=== PATIENT | female | born 2005 | race Caucasian/White ===

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

== ENCOUNTER 2025-01-15 11:52 | Outpatient (CLI) | payer BC, SELFPAY ==
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
--- NOTE | 2025-01-21 14:25 | PC.SOCIAL ---
Addendum entered and electronically signed by Hope Nugent LCSW 01/21/25 15:26: SW received callback from Dorian who states that she is doing well, just sore. YUMIKO explained that she needs a few pieces of information to complete WIC application - best time of day for WIC to contact her, if she is interested in support, and income. Dorian states she doesn't have income information and requested that YUMIKO email her the questions so she can review them and get the information. YUMIKO confirmed email address listed in the chart. Dorian inquired about when is the best time to apply for WIC, prentally or . YUMIKO explained that it's up to the patient. Patient had no further questions. Original Note: Social Work Consult: YUMIKO attempted to complete WIC application for patient, however, a few pieces of information were missing. YUMIKO called patient and left a voicemail requesting a call back.
== END 2025-01-15 11:53 | disposition home or self-care (01) ==
LOC: AMB 01-16 11:16
PROVIDERS: Visit Provider Student in an Organized Health Care Education/Training Program
DX: T14.90XA Injury, unspecified, initial encounter (principal); O36.5130 Maternal care for known or suspected placental insufficiency, third trimester, not applicable or unspecified; Z3A.28 28 weeks gestation of pregnancy; V47.0XXA Car driver injured in collision with fixed or stationary object in nontraffic accident, initial encounter; Y92.410 Unspecified street and highway as the place of occurrence of the external cause
CPT/HCPCS: A0425; A0427

== ENCOUNTER 2025-01-15 12:31 | Outpatient (CLI) | payer BC, SELFPAY ==
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
[2025-01-15 12:44] VITALS: BP 125/90; PULSE 90; RESP 20; TEMP 36.8; O2SAT 100; BMI 27.8
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
--- NOTE | 2025-01-15 13:08 | PC.NURSE ---
FHR checked by doppler. FHR 140 with doppler. Audible increases heard and fetus moving during auscultation.
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
[2025-01-15 14:03] VITALS: PULSE 84; O2SAT 100
[2025-01-15 14:06] VITALS: BP 120/69; PULSE 83; RESP 12; TEMP 37.1
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
== END 2025-01-15 19:15 | disposition home or self-care (01) ==
LOC: ED 13:29 → OB OUT 13:35 → OB 13:36
PROVIDERS: Emergency Provider Emergency Medicine; Visit Provider Advanced Practice Midwife
DX: O36.8130 Decreased fetal movements, third trimester, not applicable or unspecified (principal)
CPT/HCPCS: 59025; 73130; 76604; 76705; 93308; 99284; 99285; G0463

== ENCOUNTER 2025-01-24 09:08 | Outpatient (CLI) | payer BC, SELFPAY ==
--- NOTE | 2025-02-21 13:38 | PC.SOCIAL ---
Derivatives Trader Consult: SW received email from patient with the information SW needed to apply patient for WIC. SW completed the WIC referral for patient and informed patient this was completed and that next steps will be WIC reaching out patient. SW to continue to support patient as needed.
== END 2025-01-24 09:09 | disposition home or self-care (01) ==
LOC: NFLDREF 01-27 08:00
PROVIDERS: Visit Provider Advanced Practice Midwife
DX: Z34.83 Encounter for supervision of other normal pregnancy, third trimester (principal)
CPT/HCPCS: 86592

== ENCOUNTER 2025-01-24 09:13 | Outpatient (CLI) | payer BC, SELFPAY ==
--- NOTE | 2025-01-24 09:15 | CRLHL7_ITS ---
For Patients: As a result of the Century Cures Act, medical imaging exams and procedure reports are released immediately into your electronic medical record. You may view this report before your referring provider. If you have questions, please contact your health care provider. OBSTETRICAL ULTRASOUND ??? BIOPHYSICAL PROFILE, 01/24/2025 INDICATION: Marginal cord insertion. CLINICAL HISTORY: LMP: 07/02/2024 ALEJO by LMP: 04/08/2025 Gestational Age: 29 weeks 3 days COMPARISON: 12/21/2024. TECHNIQUE: Real-time velasco-scale imaging of the fetus was performed transabdominal. FINDINGS: Fetus: Single Cervix: Not visualized positioning: Vertex Amniotic Fluid: 7.4 cm SDP Placenta technique: Transabdominal Placenta position: Posterior heart rate: 137 bpm BIOMETRY: BPD: 7.9 cm, 31 weeks 6 days, 96% HC: 28.0 cm, 30 weeks 5 days, 54% AC: 25.1 cm, 29 weeks 2 days, 40% FL: 5.6 cm, 29 weeks 3 days, 36% FL/AC Ratio: 22.33% HC/AC ratio: 1.12 EFW: 1433 grams; 3 lbs. 3 oz. age by this ultrasound: 30 weeks 2 days ALEJO by this ultrasound: 04/02/2025 Percentile by ALEJO: 45% IMPRESSION: 1. Single living intrauterine measuring 30 weeks 2 days and sonographic due date 04/02/2025. Sonographic age is 6 days ahead of the clinical age. 2. Estimated weight is 45th percentile. Abdominal circumference is 40th percentile. 3. Placental cord insertion is located 2.4 cm from the placental edge. HUNTER FINLEY M.D. Diagnostic Radiologist [email or web address] Transcribed: 11:[address]/Dictated by: Hunter Finley MD @ 01/24/2025 11:14:00 AM (Electronically Signed)
== END 2025-01-24 09:14 | disposition home or self-care (01) ==
LOC: US 09:13
PROVIDERS: Visit Provider Advanced Practice Midwife
DX: O43.193 Other malformation of placenta, third trimester (principal); O36.63X0 Maternal care for excessive fetal growth, third trimester, not applicable or unspecified; Z3A.29 29 weeks gestation of pregnancy
CPT/HCPCS: 76816

== ENCOUNTER 2025-02-21 15:24 | Outpatient (CLI) | payer BC, SELFPAY | END 2025-02-21 15:25 | disposition home or self-care (01) | LOC: NFLDREF 02-27 18:29 | PROVIDERS: Visit Provider Advanced Practice Midwife | DX: Z34.83 Encounter for supervision of other normal pregnancy, third trimester (principal) | CPT/HCPCS: 82728 ==

== ENCOUNTER 2025-03-07 14:32 | Outpatient (CLI) | payer BC, SELFPAY ==
[2025-03-07] VITALS (19 sets, daily range): BP systolic 107–132; BP diastolic 61–80; PULSE 60–93; O2SAT 100
[2025-03-07 16:29] LABS: Clue Cells >20% Clue Cells Seen (None Seen); Trichomonas No Trichomonas Seen (None Seen); Yeast No Yeast Seen (None Seen)
[2025-03-07 16:31] LABS: Hematocrit 31.1 % (33.0-51.0); Hemoglobin* 10.3 gm/dL (12.0-16.0); Mean Corpuscular HGB Conc 33 gm/dL (32-36); Mean Corpuscular Hemoglobin 29 pg (26-34); Mean Corpuscular Volume 88 fL (80-100); Platelet Count* 135 K/uL (140-440); Red Blood Count 3.53 m/uL (4.00-5.20); White Blood Count* 6.71 K/uL (4.50-11.00)
[2025-03-07 16:35] LABS: Slide Review Reflex No
[2025-03-07 16:47] LABS: Blood Urea Nitrogen* 9 mg/dL (5-24); Creatinine* 0.5 mg/dL (0.6-1.2); Estimated Glomerular Filt Rate 138 ml/min
[2025-03-07 16:48] LABS: Alanine Aminotransferase* 16 U/L (4-35); Aspartate Amino Transferase* 28 U/L (12-35)
[2025-03-07 18:07] LABS: Appearance Urine Clear (Clear); Bilirubin Urine Negative (Negative); Blood Urine Negative (Negative); Color Urine Light yellow (Yellow); Glucose Urine Negative (Negative); Ketones Urine 1+ (Negative); Leukocyte Esterase Urine Negative (Negative); Nitrite Urine Negative (Negative); Protein Urine Negative (Negative); Urobilinogen Urine 0.2 (0.2-1.0); pH Urine 6.5 (5.0-8.5)
[2025-03-07 18:20] LABS: Total Protein Urine 14 mg/dL
[2025-03-07 18:21] LABS: Creatinine Urine 31.6 mg/dL; Protein Creatinine Ratio Urine 0.44 (0-0.19)
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
--- NOTE | 2025-03-07 19:56 | PC.OBNST ---
NST Note NST Note Start: 03/07/25 14:45 Freq: ONCE Status: Active Protocol: Document 03/07/25 19:55 BAW (Rec: 03/07/25 19:56 BAW No Response) NST Note 2 Para (# of births) 0 EDC 04/08/25 Gestational Age In 35 Weeks & 3 Days Weeks & Days Patient Presented Other with Complaint(s) of Other Complaints R/O preE Reactive Yes Appropriate for Yes Gestational Age KRYSTA Case RNC Date 03/07/25 Reactive Yes Appropriate for Yes Gestational Age KRYSTA lKein RN Date 03/07/25 OB NST charge Yes Complete NST Note Yes via Write Note The provider's electronic signature indicates the NST is reactive/appropriate for gestational age. *Note to provider: If an addendum is required, open the patient's chart and click on the note under the Nurse/Allied Health tab.
[2025-03-08 05:48] LABS: Total Protein Urine 14 mg/dL
[2025-03-08 05:49] LABS: Creatinine Urine 32.4 mg/dL; Protein Creatinine Ratio Urine 0.43 (0-0.19)
[2025-03-08 06:10] LABS: Collection Time Urine 24 Hours; Total Volume 24 Hour Urine 3000 ml; Urine Creatinine mg/24 Hour 972 mg/Day
== END 2025-03-07 19:40 | disposition home or self-care (01) ==
LOC: OB OUT 14:32 → OB 14:33 → OB OUT 14:35 → OB 16:12
PROVIDERS: Visit Provider Advanced Practice Midwife
DX: O26.893 Other specified pregnancy related conditions, third trimester (principal); R07.81 Pleurodynia; R51.9 Headache, unspecified; Z3A.35 35 weeks gestation of pregnancy
CPT/HCPCS: 36415; 59025; 81003; 82565; 82570; 84156; 84450; 84460; 84520; 85027; 87210; G0463

== ENCOUNTER 2025-03-08 14:28 | Outpatient (CLI) | payer BC, SELFPAY ==
[2025-03-09 14:01] LABS: Strep B DNA Probe Negative (Negative)
[2025-03-09 14:35] LABS: Strep B Susceptibility Needed? No
[2025-03-10 05:19] LABS: Collection Time Urine 24 Hours; Total Volume 24 Hour Urine 3025 ml
[2025-03-10 05:21] LABS: Total Protein 24 Hour Urine 544.5 mg/Day; Total Protein Urine 18 mg/dL
[2025-03-10 05:51] LABS: Protein Creatinine Ratio Urine 0.26 (0-0.19); Urine Creatinine mg/24 Hour 2087 mg/Day
== END 2025-03-08 14:29 | disposition home or self-care (01) ==
LOC: NFLDREF 14:28
PROVIDERS: Advanced Practice Midwife; Visit Provider Advanced Practice Midwife
DX: O12.13 Gestational proteinuria, third trimester (principal); Z3A.35 35 weeks gestation of pregnancy
CPT/HCPCS: 82570; 84156; 87081; 87653

== ENCOUNTER 2025-04-03 12:04 | Inpatient (IN) | payer BC, SELFPAY ==
[2025-04-03] VITALS (36 sets, daily range): BP systolic 90–116; BP diastolic 52–88; PULSE 76–202; RESP 16–18; TEMP 36.4–37.3; O2SAT 81–100; BMI 33.0
--- NOTE | 2025-04-03 11:19 | CRLHL7_ITS ---
For Patients: As a result of the Century Cures Act, medical imaging exams and procedure reports are released immediately into your electronic medical record. You may view this report before your referring provider. If you have questions, please contact your health care provider. OB ULTRASOUND ALEJO by US: 04/10/2025. GA: 39 w, 0 d. Single. INDICATION: Active bleeding. TECHNIQUE: Real time grayscale imaging of the fetus was performed. Transabdominal. CERVIX: Not visualized. POSITIONING: Vertex. AMNIOTIC FLUID: 4.7 cm. SDP (N: greater than 2 x 1 cm) PLACENTA: Technique: Transabdominal. PLACENTA POSITION: Posterior. DOPPLER: heart rate: 123 bpm. IMPRESSION: There is a somewhat large-appearing ill-defined area of heterogeneously hyperechoic material within the anterior aspect of the gravid uterus measuring up to approximately 10.7 cm, anterior to the placental edge. No color Doppler flow within this area on the static images. Amniotic fluid volume is normal. heart rate 123 beats per minute. Findings are consistent with active bleeding in the setting of pain/vaginal bleeding. Results called immediately to Yelena Medeiros at 12:02 p.m. 04/03/2025 and emergent delivery advised. Hunter Winslow M.D. Diagnostic Radiologist [email or web address] URI/alanna [email or web address]/Dictated by: Hunter Winslow MD @ 04/03/2025 12:07:00 PM (Electronically Signed)
[2025-04-03] MEDS: LACTATED RINGERS 1000 ML 1,000 ML IV (11:30)
--- NOTE | 2025-04-03 11:34 | PM.OBLDTN ---
OB - Triage/Final Diagnosis Visit Information Narrative: The patient is a [] year old [] para [] at [] weeks gestation by [], who presents with []. [] Comments/Additional reasons for admission: CBC, type and screen, US orded, Ali notified, mod bright red, thighs covered in blood, woke from nap in pool of blood, no leaking fluid +FM, no ctx, SVE /-2 Evaluation Cervical dilation (cm): 1 Cervical effacement (%): 70 Vital signs: Vital Signs - 24 hr 04/03/25 11:24 04/03/25 11:25 04/03/25 11:30 Pulse Rate 102 H Blood Pressure 116/88 Pulse Oximetry 81 L 98 99 Fetus (Single) Station: -2
[2025-04-03 11:38] LABS: Hematocrit 36.1 % (33.0-51.0); Hemoglobin* 12.0 gm/dL (12.0-16.0); Immature Granulocytes Abs Auto 0.05 K/uL (0.00-0.30); Immature Granulocytes Pct Auto 0.6 %; Mean Corpuscular HGB Conc 33 gm/dL (32-36); Mean Corpuscular Hemoglobin 29 pg (26-34); Mean Corpuscular Volume 88 fL (80-100); RDW Coefficient of Variation % 13.1 % (11.5-15.5); Red Blood Count 4.12 m/uL (4.00-5.20); White Blood Count* 8.97 K/uL (4.50-11.00)
[2025-04-03 11:44] LABS: Lymphocytes Absolute Auto 1.70 K/uL (0.90-2.90)
[2025-04-03 11:45] LABS: Slide Review Reflex No
[2025-04-03 12:22] LABS: INR 0.88 (0.91-1.10); Prothrombin Time 12.7 Seconds
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
[2025-04-03] MEDS: CEFAZOLIN 2 GM INJ IVP (13:00)
[2025-04-03] MEDS: TRANEXAMIC ACID 100 MG/ML INJ 1000 MG IV (13:13)
--- NOTE | 2025-04-03 13:26 | W.PM.LDBA ---
Subjective History of Present Illness Time Seen by Provider: 11:30 Date Seen: 04/03/25 Narrative: Patient is being admitted to Labor and Delivery for vaginal bleeding. She is a 19 year old at 39.2 weeks gestation. Her full history and physical was dictated by Ze Medeiros CNM on 03/14/25. Please see this for details. Dorian states that she woke from a nap and had a pool of blood under her coming from her vaginal and was bright red in color. She denies regular contractions but does state that she has had intermittent contractions/cramping over the last few days. She denies leaking fluid and has appreciated good movement. On vaginal exam she was found to be 1cm/70%/-2 with a moderate amount of bright red blood with the exam. She does endorse some tenderness to her abdomen with palpation. Feeling contractions as cramping only and mild. Labs collected and US ordered. US showed likely abruption with blood produces noted anterior to the placenta per verbal report from the radiologist. Dr. Garcia notified of findings and consulted for likely delivery. FHR has remained reactive with moderate variability, + accels, and -decels. She is accompanied by her dad and her mom is on her way for support. The FOB is also coming but it is unclear if her will arrive prior to delivery. Specific Issues/Plans FOB: Pete (uncertain of his involvement, will now likely be involved but they are not currently together) It is a girl! (maybe Iris?;) H&P 03/14/25 by Ze Medeiros CNM # Proteinuria without dx of HTN P/C ratio 0.44 at 35.3wks with RUQ pain and HAs. BPs all normal. 24hr urine ordered. Kit sent home with pt on 03/07. Repeat ordered 03/14. BP cuff sent home for home monitoring. Consider 24 urine PP if not PreE develops # Low Platelets- 135 on 03/07 # Limited PNC. No care from 10-24 weeks. SS consult ordered. [facility] referral placed PH referral sent # Teen # Autism # Hx anxiety/depression. Feels stable at NOB but has a lot of stressors (parents don't know, fear of judgement, dad has brain CA). counseling referral sent 12/21-decided to wait until PP, family now aware and feels supported # Penicillin allergy. Briefly discussed allergy testing. She is going to clarify the allergy with her mom. # Varicella non-immune. # Marginal cord insertion (<1 cm from placental edge) Resolved Placental cord insertion is located 2.4 cm from the placental edge. ? Growth US at 28- completed and 34 weeks?NA as now resolved ? Delivery recommended: Early term delivery not indicated? # Anemia Taking oral iron COVID: Flu: TDAP: 01/24/2025 OB - Problem Based A/P Additional Plan (1) Vaginal bleeding in : Status: Acute (2) Gestational proteinuria without hypertension, antepartum: Status: Acute (3) Anemia affecting : Status: Acute (4) Autism: Problem details: high functioning, executive dysfunction Status: Acute (5) Depression: Status: Acute (6) Anxiety: Status: Acute Plan ASSESSMENT:? 19 at 39.2 weeks gestation? complicated by:?Proteinuria without dx of HTN, limited PNC from 10-24 weeks, teen , autism, anxiety and depression, varicella nonimmune, and anemia Labor type: not in labor? Category 1 FHR pattern.?? Labor complicated by: moderate vaginal bleeding, indication of placenta abruption ? GBS negative? PLAN:? 1. OB consultation for suspected abruption. Anticipate proceeding to delivery. 2. Monitoring, continuous? 3. Anticipate unscheduled section, care assumed by Dr. Garcia. Delivery/Labor/Induction Plan Plan: Section OB Result Labs Blood Type: A (+) positive Rubella: immune RPR/VDLR: nonreactive GBS Status: negative HBsAG: negative OB Exam Physical Exam Vital signs: Temp Pulse Resp BP Pulse Ox 98.3 F 102 H 18 116/88 100 04/03/25 11:42 04/03/25 11:30 04/03/25 11:42 04/03/25 11:30 04/03/25 12:35 Narrative: General: alert, oriented x3, no acute distress??? Mood: appropriate, some anxiety?? Lungs:? CTA.? Respirations - breathing unlabored??? Heart: Regular rate and rhythm?? Abdomen: soft, gravid uterus, tender to palpation ?? Legs: nontender, trace?edema Skin: warm, dry, no rashes??? Neurologic:? Intact.??? Detailed Labor and Delivery Exam Patient Gravid: yes Dilation (cm): 1 Effacement (%): 70 Cervix position: posterior Consistency: firm Contraction Frequency: 2-3 Tachysystole: No Contraction intensity: Mild Fetus (Single) Station: -2 Amniotic Membrane Status: intact Heart Rate Baseline: 120 Monitor Accelerations: Present Monitor Decelerations: None Long-Term Variability: Moderate (6-25) (initially minimal but increased to moderate )
--- NOTE | 2025-04-03 13:51 | P.OBPRC_ITS ---
Procedure Date of procedure: 04/03/25 Pre-op diagnosis: Suspected placental abruption, vaginal bleeding, adolescent , low ferritin, autism, anxiety, depression, proteinuria Post-op diagnosis: same Procedure Done: Global Will [facility] bill your pro fee for this procedure?: Yes Blood Loss Measurement Type: QBL (5906) Bakri Used: No IV fluids (mL): 1,200 Urine Output (mL): 400 Urine Output Comment: Clear, yellow Surgeon: Meghan Garcia MD Anesthesia Type: Spinal Findings: Liveborn female fetus Meconium stained and bloody amniotic fluid Placental abruption Unremarkable uterus, bilateral fallopian tubes and ovaries Procedure Name: Primary delivery Procedure Description: Patient was taken to the operating room with IV running. She received cefazolin in preoperative prophylaxis after successful test dose. Spinal anesthesia was administered. Serrato catheter was inserted. She was prepped and draped in the usual sterile fashion. Anesthesia was tested and found to be adequate. A low-transverse skin incision was made with a scalpel and carried through to the underlying layer of fascia with the scalpel. The subcutaneous fat was dissected off the underlying fascia with Bovie and blunt dissection. The fascia was nicked in the midline with a scalpel, and this incision was extended laterally with scissors. The rectus muscles were in the midline. Peritoneum was identified and entered bluntly. Bovie was used to widen this opening laterally. Sanjay O retractor was inserted and tightened down, providing excellent visualization of the lower uterine segment. The bladder reflection was found to be advanced along the lower uterine segment. A bladder flap was created with a combination of sharp and blunt dissection. Low-transverse uterine incision was made with a scalpel. Incision was widened bluntly. Meconium and blood stained amniotic fluid was noted. The 's head was grasped through the hysterotomy and elevated to the hysterotomy. The remainder of the body delivered without incident with the help of fundal pressure. No nuchal cord was noted. was noted to make spontaneous respiratory efforts with initially appropriate tone. Cord was clamped and cut after 30 seconds. Infant was handed off to attending nurses and DIRECTOR AMBULATORY. A large blood clot was noted to be presenting at the hysterotomy, organized and maroon in color thought to represent placental abruption. The placenta delivered essentially spontaneously with very little traction applied. Clinical suspicion for placental abruption was thus confirmed. IV Pitocin and IV TXA was requested and administered. The uterus was cleaned of all clots and debris with the dry lap pad x2. The hysterotomy was reapproximated with 0 Vicryl in a running, locked fashion. Second layer of the same suture was used in imbricating fashion to obtain hemostasis. Excellent uterine tone was noted. The adnexa were examined and noted to be normal in appearance. The cul-de-sac and gutters were cleansed with dampened laparotomy sponge, removing any further clots and debris. Hysterotomy was re-examined and noted be his hemostatic. Bladder flap was sequentially elevated and examined, made hemostatic with electrocautery as needed. The Sanjay O retractor was removed. The hysterotomy was reexamined and found to be hemostatic. Baldo was applied across the hysterotomy and bladder flap. The rectus muscles were grasped, elevated and examined. No fascial defects noted, muscles were made hemostatic with e lectrocautery. The fascia was reapproximated with 0 Vicryl in a running fashion. Subcutaneous fat was irrigated and Bovie used on oozing vessels. The subcutaneous fat did not require closure. The skin was closed with a subcuticular stitch of 3-0 monocryl. Surgical glue was applied above this. Surgical dressing applied. Patient tolerated procedure well was taken to recovery area in stable condition. Surgical debrief was completed. details: - Liveborn female fetus - weight: 7lb 11oz - APGARs were 7 and 9 at 1 and 5 minutes respectively - Cord gas obtained in the setting of placental abruption, found to be within normal limits with pH of 7.29, pCO2 of 56, HC03 of 26 and base excess of -1.3. Complications: hemorrhage secondary to placental abruption and uterine atony Pathology: specimen obtained, sent to pathology Surgery Debrief Performed: Yes Condition: stable Disposition: floor
--- NOTE | 2025-04-03 14:27 | P.ANES_ITS ---
Anesthesia Charges Start Date/Time Anesthesia Start Date: 04/03/25 Anesthesia Start Time: 12:42 Stop Date/Time Anesthesia Stop Date: 04/03/25 Anesthesia Stop Time: 14:07 Summary Emergency: BOARDER STEAM Coding CPT Codes CPT Codes: ANESTH CS DELIVERY - 28877 ([id number]) P2 - PATIENT W/MILD SYST DISEASE, QZ - BOARDER STEAM SVC W/O DATABASE ADMIN BY Additional Codes: Summary - Emergency: BOARDER STEAM ([id number])
--- NOTE | 2025-04-03 14:27 | W.ANESCHARGE ---
Anesthesia Charges Start Date/Time Anesthesia Start Date: 04/03/25 Anesthesia Start Time: 12:42 Stop Date/Time Anesthesia Stop Date: 04/03/25 Anesthesia Stop Time: 14:07 Summary Emergency: TRAIN CLERK Coding CPT Codes CPT Codes: ANESTH CS DELIVERY - 82746 ([id number]) P2 - PATIENT W/MILD SYST DISEASE, QZ - TRAIN CLERK SVC W/O PATTERN ASSEMBLER BY Additional Codes: Summary - Emergency: TRAIN CLERK ([id number])
[2025-04-03 14:28] LABS: Hemoglobin* 8.9 gm/dL (12.0-16.0)
--- NOTE | 2025-04-03 14:28 | P.NB_ITS ---
Nerve Block Nerve Block Time Seen by Provider: 13:55 Date Seen: 04/03/25 Type of block requested by surgeon for post-operative analgesia: TAP Side: bilateral Time out performed: Yes Verification of patient name: Yes Verification of date of : Yes Name of person performing procedure: Brad Kimberly Continuous monitoring Was continuous monitoring of O2 sat, B/P, vehicle monitor technician, recorded every 15 minutes?: Yes Procedure Checklist: sterile prep, needles and gloves Ultrasound guided. Images saved: Yes Medications given in 5ml increments after negative aspiration: Marcaine %: 0.25 mL: 30 Needle gauge: 20 and Exparel mL: 10 Needle gauge: 20 Patient tolerated procedure well: Yes Block Charges Block Charge (with Pro Fee): TAP Bilateral Use of Ultrasound Machine for Block: Yes- US Guidance/pain block
[2025-04-03 15:01] LABS: Hematocrit 26.9 % (33.0-51.0); Hemoglobin* 8.8 gm/dL (12.0-16.0); Immature Granulocytes Abs Auto 0.20 K/uL (0.00-0.30); Immature Granulocytes Pct Auto 1.2 %; Mean Corpuscular HGB Conc 33 gm/dL (32-36); Mean Corpuscular Hemoglobin 29 pg (26-34); Mean Corpuscular Volume 89 fL (80-100); RDW Coefficient of Variation % 13.1 % (11.5-15.5); Red Blood Count 3.02 m/uL (4.00-5.20); White Blood Count* 16.14 K/uL (4.50-11.00)
[2025-04-03 15:04] LABS: Lymphocytes Absolute Auto 1.20 K/uL (0.90-2.90)
[2025-04-03 15:05] LABS: Slide Review Reflex No
[2025-04-03 15:18] LABS: INR 0.94 (0.91-1.10); Prothrombin Time 13.3 Seconds
[2025-04-03] MEDS: ACETAMINOPHEN 500 MG TABLET 1000 MG PO ×2 (16:29→22:31)
--- NOTE | 2025-04-03 16:52 | PM.OBPNVD1 ---
OB - PN:Subj Subjective Time Seen by Provider: 15:20 Date Seen: 04/03/25 Narrative: Dorian is a 19 year old G 2 P 1 seen on POD0 shortly after primary C/S for placental abruption, complicated by PPH of 1455mL. was otherwise complicated by adolescent , anemia, gestational proteinuria without hypertension, autism spectrum disorder, depression and anxiety. A postprocedure hemoglobin was obtained in the setting of hemorrhage, found to be significantly lower than her preop baseline at 8.9. I requested stat repeat coags and a complete CBC to be redrawn, where the CBC was rather added to her previous lab draw. There is some evidence of hemodilution which is not unexpected in the postoperative period related IV fluids, where Hgb went from 12 to 8.8 and platelets of 139 to 111. Coags remained technically within normal limits, though her fibrinogen was noted to downtrend significantly from 534 to 385. INR of 0.94 and aPTT of 24. I presented the bedside, where patient notes she is feeling okay. She does note abdominal pain, primarily across the distribution of her incision. She does note tenderness to palpation in the upper abdomen but no discrete pain there. Denies chest pain or dyspnea. She does endorse mild lightheadedness, no dizziness, nausea/vomiting or presyncope. Lochia has been minimal. NSAIDs have been held, she has received Tylenol and a single dose of oxycodone since delivery. OB - PN: Obj Exam Physical Exam: Vital signs: Temp Pulse Resp BP Pulse Ox 98.1 F 78 18 91/59 L 99 04/03/25 14:10 04/03/25 14:35 04/03/25 14:35 04/03/25 14:35 04/03/25 14:35 Narrative: Vital signs reviewed. Patient is noted to be mildly hypotensive, no tachycardia. O2 sat of 99%. General: Patient is alert an oriented, in no acute distress. Mildly pale in appearance. Psych: Appropriate mood and affect Heart: Regular rate and rhythm, no rubs murmurs or gallops Lungs: Clear to posterior auscultation without wheezes rales or crackles Abdomen: Soft, nondistended. She is tender to palpation throughout, greatest in the lower quadrants. No rebound or guarding. Fundus palpates firm at 1 below umbilicus. Incision is covered by surgical dressing, appears clean and dry. Pelvic: Scant bleeding noted on pad, no expression of bleeding/clots on fundal massage. Humphrey catheter in place. 70cc of UOP in the 90 minutes since leaving the OR. Extremities: No significant edema, no calf erythema or tenderness. Urinary Catheter Management: Straight: Cath placed during this visit: no OB - PN: Obj Data Labs Labs: Laboratory Results - last 24 hr 04/03/25 04/03/25 04/03/25 11:22 12:09 14:22 WBC 8.97 16.14 H RBC 4.12 3.02 L Hgb 12.0 8.9 L Hct 36.1 MCV 88 MCH 29 MCHC 33 RDW Coeff of Latoya 13.1 Plt Count 139 L Neut % (Auto) 71.0 Lymph % (Auto) 19.3 L [place] % (Auto) 7.9 Eos % (Auto) 1.0 Baso % (Auto) 0.2 Neut # (Auto) 6.37 Lymph # (Auto) 1.70 [place] # (Auto) 0.70 Eos # (Auto) 0.09 Baso # (Auto) 0.02 Abs Immat Gran (auto) 0.05 Imm/Tot Granulo (auto) 0.6 INR 0.88 L APTT 24 Fibrinogen 534 H Lab Acknowledgement Test Added Blood Type A Positive Antibody Screen NEGATIVE 04/03/25 04/03/25 14:22 14:54 WBC RBC Hgb 8.8 L Hct 26.9 L MCV 89 MCH 29 MCHC 33 RDW Coeff of Latoya 13.1 Plt Count 111 L Neut % (Auto) 86.0 H Lymph % (Auto) 7.4 L [place] % (Auto) 5.1 Eos % (Auto) 0.2 Baso % (Auto) 0.1 Neut # (Auto) 13.90 H Lymph # (Auto) 1.20 [place] # (Auto) 0.80 Eos # (Auto) 0.00 Baso # (Auto) 0.00 Abs Immat Gran (auto) 0.20 Imm/Tot Granulo (auto) 1.2 INR 0.94 APTT 24 Fibrinogen 385 Lab Acknowledgement Blood Type Antibody Screen OB - PN: A/P Delivery Assessment and Plan (1) Placental abruption: Status: Acute (2) Vaginal bleeding in : Status: Acute (3) Gestational proteinuria without hypertension, antepartum: Status: Acute (4) Intrauterine in teenager: Status: Acute (5) Autism: Problem details: high functioning, executive dysfunction Status: Acute (6) Depression: Status: Acute (7) Anxiety: Status: Acute Plan Dorian is a 19yo seen on POD0 shortly after primary C/S for placental abruption, complicated by PPH of 1455mL. was otherwise complicated by adolescent , anemia, gestational proteinuria without hypertension, autism spectrum disorder, depression and anxiety. Immediate postoperative course has been notable for mild hypotension, without tachycardia. Patient does endorse postoperative pain, need with Tylenol and oxycodone. NSAIDs have been held, in the setting of postoperative hemoglobin of 8.9 from 12.0 preoperatively. Repeat stat CBC and coags were requested, where CBC was rather added on to the prior draw. Hgb of 8.8, platelets of 111, fibrinogen of 385 from 534, INR of 0.94 from 0.88 and APTT stable at 24. I presented the bedside, where patient is overall well-appearing. She does have slight lightheadedness and abdominal pain, receiving Tylenol and oxycodone (5mg x1) for pain control. NSAIDs have been held at this time. Her abdominal exam is overall very reassuring - soft, nondistended. She does have tenderness to palpation throughout, greatest in the lower quadrants but no rebound or guarding. Fundus palpates firm at 1 below umbilicus. Scant lochia noted on pad. UOP has been adequate (70cc in 90 minutes) with humphrey in place. Overall, I suspect her anemia is secondary to placental abruption, acute blood loss from surgery and likely some hemodilution. Pre-op Hgb was 12, whereas clinic labs have been 9.8 - 10.3 from 01/24 until 10.3 so I do suspect our initial draw may have been somewhat hemoconcentrated. Regardless, she has an overall reassuring abdominal exam, adequate UOP, no tachycardia and minimal lochia - where my suspicion for active bleeding is overall low. Plan to diligently monitor VS and UOP in the coming hours. Plan to repeat CBC and coags in 4 hours to ensure stability. Continue to hold NSAIDs. If her hemoglobin continues to downtrend, explained next steps could include CT of the abdomen pelvis, blood transfusion and reoperation if hemoperitoneum is suspected. She expressed understanding and is agreeable to plan. Encouraged her to notify us with any worsening pain, chest pain/dyspnea, dizziness/lightheadedness, nausea/vomiting. Bedside RN to notify me with change in VS or UOP. 1800 update: Repeat labs were drawn at 1700. Hemoglobin is notable to be stable at 9.0, platelets of 109. Coags are stable - INR 0.97, APTT of 24, fibrinogen of 367. I returned to the bedside to review results with patient. She is overall well-appearing notes her pain control is much improved. She is seated upright. Updated urine output is still adequate. Abdominal exam remained soft, nondistended, tenderness to palpation in the upper quadrant has resolved. She continues to have mild tenderness to palpation in the lower quadrants, again no rebound or guarding. Her overall tenderness is significantly improved from last exam. Surgical dressing is clean/dry. Plan to discontinue NPO status. We will plan to hold NSAIDs on of an abundance of precaution. Plan to repeat labs in the morning, sooner with any acute changes in her clinical status. Patient expressed understanding is agreeable to plan. Plan day: 0
[2025-04-03 17:24] LABS: Hematocrit 27.0 % (33.0-51.0); Hemoglobin* 9.0 gm/dL (12.0-16.0); Immature Granulocytes Pct Auto 0.2 %; Mean Corpuscular HGB Conc 33 gm/dL (32-36); Mean Corpuscular Hemoglobin 30 pg (26-34); Mean Corpuscular Volume 89 fL (80-100); RDW Coefficient of Variation % 13.2 % (11.5-15.5); Red Blood Count 3.05 m/uL (4.00-5.20); White Blood Count* 12.20 K/uL (4.50-11.00)
[2025-04-03 17:27] LABS: Immature Granulocytes Abs Auto 0.00 K/uL (0.00-0.30); Lymphocytes Absolute Auto 0.80 K/uL (0.90-2.90); Slide Review Reflex No
[2025-04-03 18:08] LABS: INR 0.97 (0.91-1.10); Prothrombin Time 13.7 Seconds
[2025-04-03] MEDS: LACTATED RINGERS 1000 ML 1,000 ML 125 ML IV (19:39)
[2025-04-04 00:45] VITALS: BP 107/67; PULSE 94; RESP 16; TEMP 37.1; O2SAT 96
[2025-04-04] MEDS: ACETAMINOPHEN 500 MG TABLET 1000 MG PO ×2 (04:28→10:10)
[2025-04-04 04:45] VITALS: BP 130/77; PULSE 86; RESP 16; TEMP 37.2; O2SAT 99
[2025-04-04 06:32] LABS: Hematocrit 27.5 % (33.0-51.0); Hemoglobin* 9.0 gm/dL (12.0-16.0); Immature Granulocytes Abs Auto 0.05 K/uL (0.00-0.30); Immature Granulocytes Pct Auto 0.6 %; Mean Corpuscular HGB Conc 33 gm/dL (32-36); Mean Corpuscular Hemoglobin 30 pg (26-34); Mean Corpuscular Volume 90 fL (80-100); RDW Coefficient of Variation % 13.5 % (11.5-15.5); Red Blood Count 3.05 m/uL (4.00-5.20); White Blood Count* 9.00 K/uL (4.50-11.00)
[2025-04-04 06:36] LABS: Lymphocytes Absolute Auto 1.60 K/uL (0.90-2.90); Slide Review Reflex No
[2025-04-04 07:44] VITALS: BP 110/68; PULSE 86; RESP 16; TEMP 37; O2SAT 96
--- NOTE | 2025-04-04 09:17 | P.OBPN_ITS ---
OB - PN:Subj Subjective Time Seen by Provider: 09:17 Date Seen: 04/04/25 [place] status: feeding status: exclusively Narrative: The patient feels regular.? The pain is moderately controlled with current medications.?NSAIDs had been on hold due to concerns for continued bleeding. She has no new complaints.? Urinary output is adequate and she is voiding without difficulty.? Has a good appetite, is tolerating a general diet, has not passed flatus yet, and has not had a bowel movement.? Has scant amount of rubra lochia.? She moving in the room w/o lightheadedness, SOB or heart palpiatations. She is and reports it is going okay. Hemoglobin repeated this am and stable at 9.0mg/dL. OB - PN: Obj Exam Physical Exam: Vital signs: Temp Pulse Resp BP Pulse Ox O2 Del Method 98.6 F 86 16 110/68 96 Room Air 04/04/25 07:44 04/04/25 07:44 04/04/25 07:44 04/04/25 07:44 04/04/25 07:44 04/04/25 07:44 Narrative: GENERAL APPEARANCE:? normal affect, alert, no distress MOOD:? appropriate CHEST:? clear to auscultation HEART:? regular rate and rhythm ABDOMEN:? soft, non-tender the uterine fundus is At Umbilicus, Midline and is appropriate for the stage of recovery. EXTREMITIES:? normal and trace edema Incision: Dressing in place dlean and dry. Urinary Catheter Management: Straight: Cath placed during this visit: no OB - PN: Obj Data Labs Labs: Laboratory Results - last 24 hr 04/03/25 04/03/25 04/03/25 11:22 12:09 14:22 WBC 8.97 16.14 H RBC 4.12 3.02 L Hgb 12.0 8.9 L Hct 36.1 MCV 88 MCH 29 MCHC 33 RDW Coeff of Latoya 13.1 Plt Count 139 L Neut % (Auto) 71.0 Lymph % (Auto) 19.3 L [place] % (Auto) 7.9 Eos % (Auto) 1.0 Baso % (Auto) 0.2 Neut # (Auto) 6.37 Lymph # (Auto) 1.70 [place] # (Auto) 0.70 Eos # (Auto) 0.09 Baso # (Auto) 0.02 Abs Immat Gran (auto) 0.05 Imm/Tot Granulo (auto) 0.6 INR 0.88 L APTT 24 Fibrinogen 534 H Lab Acknowledgement Test Added Blood Type A Positive Antibody Screen NEGATIVE 04/03/25 04/03/25 04/03/25 14:22 14:54 17:05 WBC 12.20 H RBC 3.05 L Hgb 8.8 L 9.0 L Hct 26.9 L 27.0 L MCV 89 89 MCH 29 30 MCHC 33 33 RDW Coeff of Latoya 13.1 13.2 Plt Count 111 L 109 L Neut % (Auto) 86.0 H 87.5 H Lymph % (Auto) 7.4 L 6.8 L [place] % (Auto) 5.1 5.2 Eos % (Auto) 0.2 0.1 Baso % (Auto) 0.1 0.2 Neut # (Auto) 13.90 H 10.70 H Lymph # (Auto) 1.20 0.80 L [place] # (Auto) 0.80 0.60 Eos # (Auto) 0.00 0.00 Baso # (Auto) 0.00 0.00 Abs Immat Gran (auto) 0.20 0.00 Imm/Tot Granulo (auto) 1.2 0.2 INR 0.94 APTT 24 Fibrinogen 385 Lab Acknowledgement Blood Type Antibody Screen 04/03/25 04/04/25 17:45 06:06 WBC 9.00 RBC 3.05 L Hgb 9.0 L Hct 27.5 L MCV 90 MCH 30 MCHC 33 RDW Coeff of Latoya 13.5 Plt Count 116 L Neut % (Auto) 73.8 H Lymph % (Auto) 17.3 L [place] % (Auto) 8.0 Eos % (Auto) 0.1 Baso % (Auto) 0.2 Neut # (Auto) 6.60 Lymph # (Auto) 1.60 [place] # (Auto) 0.70 Eos # (Auto) 0.01 Baso # (Auto) 0.02 Abs Immat Gran (auto) 0.05 Imm/Tot Granulo (auto) 0.6 INR 0.97 APTT 24 Fibrinogen 367 Lab Acknowledgement Blood Type Antibody Screen OB - PN: A/P Delivery Assessment and Plan (1) Placental abruption: Status: Acute (2) Vaginal bleeding in : Status: Acute (3) Gestational proteinuria without hypertension, antepartum: Status: Acute (4) Intrauterine in teenager: Status: Acute (5) Autism: Problem details: high functioning, executive dysfunction Status: Acute (6) Depression: Status: Acute (7) Anxiety: Status: Acute Plan day: 1 Plan: routine care Comments: Restart NSAIDs for pain management. Encouraged ambulation.
[2025-04-04 12:30] VITALS: BP 107/67; PULSE 96; RESP 18; TEMP 37.1; O2SAT 96
[2025-04-04 14:03] VITALS: BP 105/68; PULSE 96; RESP 18; TEMP 37.1; O2SAT 96
[2025-04-04] MEDS: IBUPROFEN 600 MG TABLET PO ×2 (14:08→20:12)
[2025-04-04 16:13] VITALS: BP 115/66; PULSE 94; RESP 18; O2SAT 98
--- NOTE | 2025-04-04 16:58 | PC.SOCIAL ---
Social work: Met with pt who was holding baby. Pt states she has all supplies needed for the baby at her home in [place]. She has very good supportive family and friends who will be available to assist her with the baby and babysit. She had been working at [employer] and quit a few weeks ago. 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 Pt shared her story of emergency and how challenging that was for her. She seems to be coping well. Pt shared she has applied and received Medical Assistance recently as she qualified for this when she stopped working. Pt also had been over income for [employer] when working but plans to re-apply for [employer] now that she does not have an income. Pt states she is interested in programs and financial assistance available to help financially until she can return to work. Provided pt with written resources for [facility] CAP program and food assistance. Also shared information on new parent education and support groups for new parents and infants. Pt is interested in these and [facility] is where she would come for these. Shared with pt the [facility] programs available to new mothers and newborns. She shared that she is interested in this support. Provided pt with contact information for hospital social science research assistant in case pt has any need for resources after discharge. Pt appeared appreciative of visit.
[2025-04-05 01:33] VITALS: BP 107/66; PULSE 94; RESP 16; TEMP 37.1; O2SAT 97
[2025-04-05] MEDS: IBUPROFEN 600 MG TABLET PO ×4 (02:17→23:10)
--- NOTE | 2025-04-05 07:25 | PM.OBPNVD1 ---
OB - PN:Subj Subjective Date Seen: 04/05/25 Narrative: Dorian is a 19 y.o. G 2 P 1 who was admitted to [facility] for suspected placenta abruption. ?She had a section that was complicated by PPH of 1455. The patient feels well. ?The pain is well controlled with current medications. ?She has no new complaints. ?She is breast feeding and reports things are going well. the patient has done well.? Vitals have been stable.? She has remained afebrile.? Has a good appetite, is tolerating a general diet. ?She is voiding without difficulty.? She is passing gas and has not had a bowel movement.? She is ambulating and denies any dizziness.? Has small amount of rubra lochia. She initially had some abnormal Coag labs but they have stabilized. Oral iron ordered to start today for hgb of 9.0. Patient reports pain control has improved today with use of ibuprofen. Problems: Anemia OB - PN: Obj Exam Physical Exam: Vital signs: Temp Pulse Resp BP Pulse Ox O2 Del Method 98.7 F 94 16 107/66 97 Room Air 04/05/25 01:33 04/05/25 01:33 04/05/25 01:33 04/05/25 01:33 04/05/25 01:04/05/25 01:33 Narrative: GENERAL APPEARANCE:? normal affect, alert, no distress MOOD:? appropriate CHEST:? clear to auscultation HEART:? regular rate and rhythm ABDOMEN:? soft, non-tender the uterine fundus is At Umbilicus, Midline and is appropriate for the stage of recovery. EXTREMITIES:? normal and no edema INCISION: Healing well, no surrounding erythema, abnormal induration or discharge Constitutional: Constitutional: mild distress Urinary Catheter Management: Straight: Cath placed during this visit: no OB - PN: Obj Data Labs Labs: Laboratory Results - last 24 hr 04/03/25 11:22 RPR Screen Non Reactive OB - PN: A/P Delivery Assessment and Plan (1) care and examination immediately after delivery: Status: Acute (2) Placental abruption: Status: Acute (3) Gestational proteinuria without hypertension, antepartum: Status: Acute (4) Intrauterine in teenager: Status: Acute (5) Autism: Problem details: high functioning, executive dysfunction Status: Acute (6) Depression: Status: Acute (7) Anxiety: Status: Acute (8) Lactating mother: Status: Acute Plan day: 2 Plan: routine care Comments: , may see if needed? Hgb 9.0. Iron supplement ordered orally every other day? PPH. Stable bleeding and coag labs. Anticipate discharge home tomorrow.
[2025-04-05] MEDS: FERROUS SULFATE 325 MG TABLET PO (08:25)
[2025-04-05] MEDS: DOCUSATE SODIUM 100 MG CAPSULE PO (08:25)
[2025-04-05 08:27] VITALS: BP 104/66; PULSE 82; RESP 18; TEMP 36.6; O2SAT 98
[2025-04-05] MEDS: ACETAMINOPHEN 500 MG TABLET 1000 MG PO (11:23)
[2025-04-05] MEDS: SIMETHICONE 80 MG TAB.CHEW PO (13:53)
[2025-04-05 13:58] VITALS: BP 108/69; PULSE 83; RESP 18; TEMP 36.4; O2SAT 100
[2025-04-05 22:49] VITALS: BP 110/71; PULSE 83; RESP 16; TEMP 37.1
[2025-04-06] MEDS: IBUPROFEN 600 MG TABLET PO (05:20)
--- NOTE | 2025-04-06 08:30 | PM.OBDSVD1 ---
DS: Providers Provider Date Seen: 04/06/25 Date of admission: 04/03/25 12:04 Primary care physician: Not a Local Provider Admitting Clinician: Yelena Medeiros CNM Consults: 04/03/25 13:55 Consult to Physician [CONS] Routine Comment: Consulting Provider: Celina Garcia Has provider been notified: Yes 04/04/25 01:08 Consult to Mortgage Sales Manager [CONS] Routine Comment: Reason for Consult:: Social Service Consult Home Health Assessment Attending Physician on discharge: Ryan Lima CNM Date of Discharge: 04/06/25 DS: Diagnosis Discharge Diagnosis (1) Placental abruption: Status: Acute (2) care and examination immediately after delivery: Status: Acute (3) Lactating mother: Status: Acute (4) Status post delivery: Status: Acute (5) Anemia associated with acute blood loss: Status: Acute (6) hemorrhage: Status: Acute Exam Narrative: Exam Narrative: VSS. ?Afebrile GENERAL APPEARANCE: ?normal affect, alert, no distress MOOD: ?appropriate HEENT: normocephalic, neck supple, full ROM CHEST: ?Symmetrical chest wall movement. ?Normal respiratory effort. ?Clear to auscultation HEART: ?regular rate and rhythm ABDOMEN: ?soft, non-tender. Uterine fundus is firm, 2 below Umbilicus, Midline and is appropriate for the stage of recovery. ?Bowel sounds present. EXTREMITIES: ?normal and trace edema SKIN: warm, dry. ? ?Incision clean/dry/well approximated. ?No signs of infection noted. Const: Vital Signs, click to edit/add: Vital Signs - 24 hr 04/05/25 13:58 04/05/25 22:49 Temperature 97.6 F 98.7 F Pulse Rate [Pulse Oximeter] 83 83 Respiratory Rate 18 16 Blood Pressure [Ri ght Arm] 108/69 110/71 Pulse Oximetry 100 Oxygen Delivery Me thod Room Air Documenting provider has reviewed patient's vital signs: yes OB - DS: Summary Hospital Course Hospital Course: Dorian is a 19 y.o. who was admitted to [facility] for suspected placenta abruption. ?She had a section that was complicated by PPH of 1455. . ?She had an primary .?The patient feels well. ?The pain is well controlled with current medications. ?She has no new complaints. ?She is breast feeding and reports things are going well.? the patient has done well.? Vitals have been stable.? She has remained afebrile.? Has a good appetite, is tolerating a general diet. ?She is voiding without difficulty.? She is passing gas and has had a bowel movement.? She is ambulating and denies any dizziness.? Has Small amount of rubra lochia. ?She is planning IUD for prevention. Peripartum Data delivery method: Primary C/S; Non-Labored Procedures: Procedures Operation Date: 04/03/25 12:30 Actual Procedure Side Surgeon p Section Not Applicable Celina Garcia MD complications: none [place] Gender: Female Discharge Plan: Home Status at Discharge Functional status at discharge: independent ambulation Overall status at discharge: patient is progressing back to baseline Time Spent with Patient Time attestation: Total time spent providing and/or coordinating discharge services: Time spent: Less than 30 minutes Discharge Plan Discharge Disposition: Home, Self-Care Date of Admission: 04/03/25 12:04 Attending Provider on Discharge: Ryan Lima Consulting Providers: Celina Garcia Primary Care Provider: Provider,Not a Local Condition: Stable Anticipated Discharge Date/Time: 04/06/25 12:00 Discharge Medications: New acetaminophen 500 mg Tablet 1,000 mg PO Q6H PRN (Reason: Pain) Qty: 0 0RF ferrous sulfate 325 mg (65 mg iron) Tablet 325 mg PO Q OTHER DAY Qty: 30 0RF docusate sodium 100 mg Capsule 100 mg PO DAILY Qty: 90 0RF ibuprofen 600 mg Tablet 600 mg PO Q6H PRNQty: 60 0RF oxycodone 5 mg Tablet 5 - 10 mg PO Q4H PRN (Reason: Pain) Qty: 10 0RF Continued ondansetron HCl 4 mg tablet 4 mg PO Q8H Qty: 30 0RF DHA 200 mg capsule 200 mg PO DAILY ferrous sulfate 325 mg (65 mg iron) tablet 325 mg PO Q OTHER DAY Qty: 60 1RF Discharge Orders: Discharge Order (Routine); Ordered 04/06/25 Ordered By: Ryan Lima Patient Education: OB Over the Counter Medication Information, OB /Breast Feeding Additional Instructions: Discharge instructions were reviewed with the patient including signs and symptoms of infection and home going medications Lifting Restrictions: 20 pounds for 6 weeks No not submerge incision under water X 2 weeks? Nothing vaginally for 6 weeks: no tampons or intercourse Do not drive while taking narcotic pain medication(s) Off Work or School for 8 weeks 2-week visit: incision check, discuss infant feeding concerns, review control options and screen for anxiety/depression. 6-week visit for an annual exam. consultation services are available to all mothers and babies for the first year after delivery.? To make an appointment, please call [phone]. Activity Level: Activity as Tolerated Discharge Diet: Regular Follow Up Appointments: [facility] [Provider Group] Forms: [employer] Info Instructions
[2025-04-06 09:24] VITALS: BP 114/70; PULSE 79; RESP 16; O2SAT 100
[2025-04-06 13:08] LABS: Appearance Urine Clear (Clear)
[2025-04-06 16:33] VITALS: BP 121/73; PULSE 85; RESP 16; TEMP 36.8; O2SAT 100
== END 2025-04-06 21:05 | disposition home or self-care (01) | DRG 540 ==
LOC: OB OUT 12:05 → OB 12:05
PROVIDERS: Advanced Practice Midwife; Obstetrics & Gynecology; Admitting Provider Advanced Practice Midwife; Visit Provider Advanced Practice Midwife
PROC: 10D00Z1 Extraction of Products of Conception, Low, Open Approach (ICD-10-PCS; CPT 59514; principal; 2025-04-03 12:30)
DX: O45.93 Premature separation of placenta, unspecified, third trimester (principal); O72.1 Other immediate postpartum hemorrhage; I95.81 Postprocedural hypotension; R42 Dizziness and giddiness; O77.0 Labor and delivery complicated by meconium in amniotic fluid; O12.14 Gestational proteinuria, complicating childbirth; O99.02 Anemia complicating childbirth; D62 Acute posthemorrhagic anemia; G89.18 Other acute postprocedural pain; I95.89 Other hypotension; R30.0 Dysuria; O99.344 Other mental disorders complicating childbirth; F32.A Depression, unspecified; F41.9 Anxiety disorder, unspecified; F84.0 Autistic disorder; Z28.39 Other underimmunization status; Z37.0 Single live birth; Z3A.39 39 weeks gestation of pregnancy
CPT/HCPCS: 01961; 36415; 64488; 76815; 76942; 81003; 85018; 85025; 85384; 85610; 85730; 86592; 86850; 86900; 86901; 99140; A4314; A9270; J0169; J0665; J0666; J0690; J1100; J2405; J2590; J3010; J7120

== ENCOUNTER 2025-04-17 12:49 | Outpatient (CLI) | payer BC, SELFPAY | END 2025-04-17 12:50 | disposition home or self-care (01) | LOC: NFLDREF 04-19 07:30 | PROVIDERS: Visit Provider Advanced Practice Midwife | DX: R30.0 Dysuria (principal) | CPT/HCPCS: 87086 ==

== ENCOUNTER 2025-05-02 15:47 | Emergency (ER) | payer BC, MEDICAID, SELFPAY ==
[2025-05-02 15:50] VITALS: BP 134/84; PULSE 79; RESP 18; TEMP 38.1; O2SAT 97; BMI 28.7
--- OUTSIDE RECORDS SUMMARY | 2025-05-02 16:01 | XMS_ITS | Clinical Summary ---
Author Organization [facility] Address [address] [place] [id number] Care Team Providers Care Warehouse Delivery Driver Name Role Phone Pcp, No Primary Care [...] Unspecified dental caries 02/10/2009 Autism spectrum disorder Encounters Date Type Department Care Team Description 04/03/2025 Lab Requisition [facility] [phone] Celina Garcia MD 04/03/2025 Lab Requisition [facility] [phone] Celina Garcia MD from Last 3 Months Immunizations Immunization Administration Dates Next Due DTaP 12/08/2006 [id number]-[id number] (Pediarix) 2005,2005,1 DTaP-IPV (Kinrix) 07/20/2010 HIB PRP-OMP [...] on file Legal Sex Female 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 Gender Identity Not on file Sexual Orientation [...] 07/20/2011 07/20/2010, 02/04/2010, 07/11/2008, Additional history exists Tetanus booster 2016 HIV for age 15-65 2020 HPV series for age 9-26 (1 - 3-dose series) 2020 BMI (ht and wt on same day) for age 18+ 2023 Hepatitis C screening for age 18-79 2023 COVID-19 vaccine series ( season) 2024 Depression screening for age 12+ 04/24/2025 04/24/2024, 04/23/2024, 04/03/2024, Additional history exists Influenza Vaccine (#1) 2025 9, 07/11/2008, 11/15/2006 Hepatitis B series for 19+ Completed 11/16, 2005, 2005 Pneumococcal series for age 6-49 Aged Out 12/08/2006, 2005, 2005, Additional history exists No longer eligible based on patient's age to complete this topic Meningococcal series for age 11-21 Aged Out No longer eligible based on patient's age to complete this topic Procedures Procedure Name Priority Date/Time Associated Diagnosis Comments LAB TRACKING EVENT Routine 04/03/2025 1: 10 PM CDT PATH TISSUE EXAM PLACENTA Routine 04/03/2025 1:10 PM CDT from Last 3 Months Results * LAB TRACKING EVENT (04/03/2025 1:10 PM CDT) Other (Other) Client Collect / Unknown 04/03/2025 1:10 PM CDT 04/03/2025 11:25 PM CDT us Celina Garcia MD LAB BILL ONLY Final Re sult [facility] [address] [place] [address], * PATH TISSUE EXAM PLACENTA (04/03/2025 1:10 PM CDT) Case Report Pathology Report Case: [id number] Authorizing Provider: Celina Garcia MD Collected: 04/03/2025 1310 Ordering Location: [facility] Received: 04/04/2025 0504 Pathologist: Shaun Cerda MD Specimen: Placenta 04/09/2025 12:50 PM CDT [facility] [facility] Final Diagnosis A) PLACENTA, DELIVERY: 1. Third trimester mora placenta with the following characteristics: a. Weight: 469 grams (39 week 10-90th percentile weight range, 426 - 611 grams) b. Membranes/ surface: Negative for chorioamnionitis c. Umbilical cord: Three vessel cord Negative for funisitis d. Disc/Villi: Chorionic villi consistent with gestational age Negative for villitis Placental disc without infarcts Intervillous thrombus, involving < 5% of the disc e. Decidua/basal plate: Findings consistent with abruption, including prominent aggregate of hemorrhage/blood clot 04/09/2025 12:50 PM CDT [facility] at 1250 CDT Comment 04/09/2025 12:50 PM CDT [facility] Clinical Information Indications for Placental Examination by Pathology Placental indications: Abruption Infectious specimen (e.g. maternal HIV or HCV): No Clinical information: Date of delivery: 04/03/2025 Time of delivery: 1310 Type of delivery: Live born:Yes Gestational age: 39.2 weeks Sex of (s): Female Pertinent Maternal History: Diabetes: No Hypertension: No Eclampsia: No Smoking: No 04/09/2025 12:50 PM CDT [facility] Gross Description A) Received fresh labeled with the patient's name and placenta, is a 469 gram, 19.6 x 16.9 x 2.4 cm mora placenta. The surface is blue-velasco with normal vasculature. The 22.5 cm long, 1.2 cm diameter trivascular umbilical cord is eccentrically inserted 2.2 cm from the nearest edge of the placental plate. The umbilical cord is free of true and false knots. There is 3.5 revolutions per 10 cm. The extraplacental membranes are are pink semitransparent with slight meconium staining. The membranes are marginally inserted. The maternal surface is complete with intact cotyledons. There is a 14.2 x 7.3 x 2.4 cm unattached blood clot. Sectioning reveals a red hemorrhagic spongy center throughout with a 1.4 x 1.2 x 1.0 cm area of white discoloration and induration accounting for less than 5% of the total volume. Obstetrics Gynecology Physician sections are submitted: 1. membranes and insertion 2. Umbilical cord 3. Placenta parenchyma at umbilical cord insertion, full-thickness 4-5. Central placental parenchyma, full-thickness 6. Placenta parenchyma with white discoloration and induration, full-thickness 7. Unattached blood clot Time and date in formalin: 1045 on 04/08/2025 TRS 04/08/2025 04/09/2025 12:50 PM CDT [facility] [employer] [facility] Microscopic Description The final diagnosis is based on microscopic examination of appropriate sections of all specimens. 04/09/2025 12:50 PM CDT [facility] Additional Information Interpreted at [facility] - [address] [address] 04/09/2025 12:[address] [facility] Tissue SPECIMEN FROM PLACENTA / Unknown 04/03/2025 1:10 PM CDT 04/04/2025 5:04 AM CDT us Celina Garcia MD PATHOLOGY/CYTOLOGY Final Result [facility] [address] [place] [address], from Last 3 Months Insurance [employer] [place] [employer] [place] [id number] NARANJO [id number] MARU ESP[place] [employer] [place] Advance Directives * Full Code (Latest Code Status on File) Date Activated Date Inactivated Comments 02/13/2009 1:48 PM 02/13/2009 1:50 PM * Full Code Date Activated Date Inactivated Comments 02/13/2009 8:20 AM 02/13/2009 8:21 AM Care Teams Warehouse Delivery Driver Relationship Specialty Start Date End Date PcpLizet General 04/03/24
--- NOTE | 2025-05-02 16:12 | CRLHL7_ITS ---
For Patients: As a result of the Century Cures Act, medical imaging exams and procedure reports are released immediately into your electronic medical record. You may view this report before your referring provider. If you have questions, please contact your health care provider. CLINICAL HISTORY: : Breast pain evaluate for abscess COMPARISON: Left breast ultrasound TECHNIQUE: Breast ultrasound of the left breast FINDINGS: Static images labeled 12-6 o`clock demonstrates no suspicious mass or fluid collections. IMPRESSION: Negative left breast ultrasound. RECOMMENDATIONS: Recommend clinical follow-up to resolution and also imaging follow-up at the breast center. BI-RADS Category 2 Dictated by Connie Augustine MD @ 05/03/2025 9:53:12 AM (Electronically Signed)
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
[2025-05-02 16:31] LABS: Lactate* 0.5 mmol/L (0.5-1.9)
[2025-05-02 16:35] LABS: Hematocrit 33.4 % (33.0-51.0); Hemoglobin* 10.7 gm/dL (12.0-16.0); Immature Granulocytes Abs Auto 0.01 K/uL (0.00-0.30); Immature Granulocytes Pct Auto 0.2 %; Mean Corpuscular HGB Conc 32 gm/dL (32-36); Mean Corpuscular Hemoglobin 27 pg (26-34); Mean Corpuscular Volume 85 fL (80-100); RDW Coefficient of Variation % 12.2 % (11.5-15.5); Red Blood Count 3.91 m/uL (4.00-5.20); White Blood Count* 6.60 K/uL (4.50-11.00)
[2025-05-02 16:47] LABS: Albumin* 4.2 g/dL (3.3-5.0); Chloride* 104 mmol/L (96-114); Lymphocytes Absolute Auto 1.20 K/uL (0.90-2.90); Slide Review Reflex No
[2025-05-02 16:48] LABS: Potassium* 4.1 mmol/L (3.6-5.1); Sodium* 134 mmol/L (135-149)
[2025-05-02 16:50] LABS: Alanine Aminotransferase* 20 U/L (4-35); Aspartate Amino Transferase* 26 U/L (12-35); Blood Urea Nitrogen* 11 mg/dL (5-24); Creatinine* 0.7 mg/dL (0.6-1.2); Est. Creatinine Clearance* 125.71; Estimated Glomerular Filt Rate 128 ml/min
[2025-05-02] MEDS: IBUPROFEN 200 MG TABLET 600 MG PO (16:50)
[2025-05-02 16:51] LABS: Alkaline Phosphatase* 88 U/L (40-150); Anion Gap 6 mEq/L (7-15); Bilirubin Total* 0.4 mg/dL (0.1-1.5); Calcium* 8.7 mg/dL (8.7-10.8); Carbon Dioxide* 24 mmol/L (20-32); Glucose* 96 mg/dL (60-115); Total Protein* 7.0 g/dL (6.0-8.3)
[2025-05-02 17:11] LABS: Appearance Urine Clear (Clear)
--- NOTE | 2025-05-02 17:21 | CRLHL7_ITS ---
For Patients: As a result of the Century Cures Act, medical imaging exams and procedure reports are released immediately into your electronic medical record. You may view this report before your referring provider. If you have questions, please contact your health care provider. Indication: Post pelvic pain and back pain, fever Technique: Volumetric multidetector CT images of the abdomen and pelvis were obtained after the administration of intravenous contrast. 90 cc Isovue 370 low osmolar intravenous contrast Comparison: None available. Findings: The lung bases are clear. The liver is normal in attenuation without intrahepatic biliary ductal dilatation. The portal vein is patent. The gallbladder is unremarkable without evidence of radiopaque calculus. There is no significant common biliary ductal dilatation or abrupt cut off. The spleen is normal in enhancement and size. The stomach and duodenum are grossly unremarkable. The pancreas is normal in enhancement without significant atrophy. The adrenal glands are unremarkable. There is mild bilateral hydronephrosis with otherwise preserved corticomedullary differentiation. No evidence of obstructive uropathy. Findings likely represent dynamic physiologic changes from recent /gravid state. Moderate to severe stool is seen throughout the proximal colon with minimal fluid within mid to distal small bowel loops. No overt pericolonic inflammatory change. The appendix is not visualized. There is no significant mesenteric, retroperitoneal, or pelvic sidewall lymph nodes. The aorta is nonaneurysmal. There is no significant atherosclerotic disease appreciated. There is a retroverted uterus with moderate persistent thickening of the endometrium with a small defect of the lower uterine segment commensurate with recent section. Trace fluid is seen within the cul-de-sac without evidence of large rim enhancing fluid collection. There is no free fluid or free air. There is moderate diastasis of the rectus musculature. The lumbar vertebral body heights are grossly maintained in satisfactory alignment without evidence of displaced fracture, lytic or blastic lesion. Impression: 1. Postoperative change status post section with demonstration of a surgical defect along the low midline uterus which demonstrates minimal residual distended appearance of the endometrial canal measuring up to 9.8 millimeters with questionable hyperemia. There is trace fluid in the cul-de-sac. Otherwise no obvious rim enhancing fluid collection or superficial infectious changes of the low midline incision. Recommend follow-up with pelvic sonogram for improved characterization if there is concern for potential endometritis or retained products of conception. 2. Moderate to severe stool seen throughout the colon consistent with constipation changes. Otherwise, no acute intra-abdominal abnormality is appreciated. Please note that all CT scans at this facility use dose modulation, iterative reconstruction, and/or weight-based dosing when appropriate to reduce radiation dose to as low as reasonably achievable. Dictated by Donell Vega MD @ 05/02/2025 6:39:30 PM (Electronically Signed)
[2025-05-02 18:03] VITALS: BP 111/69; PULSE 73; RESP 18; TEMP 36.4; O2SAT 100
[2025-05-02] MEDS: DOCUSATE SODIUM 100 MG CAPSULE 200 MG PO (19:17)
== END 2025-05-02 19:15 | disposition home or self-care (01) ==
PROVIDERS: Emergency Provider Family Medicine
DX: N61.0 Mastitis without abscess (principal); N13.5 Crossing vessel and stricture of ureter without hydronephrosis; K59.00 Constipation, unspecified
CPT/HCPCS: 36415; 74177; 76642; 80053; 81001; 83605; 83690; 85025; 86140; 87086; 99284; 99285; A9270; Q9967